=== PATIENT | male | born 1990 | race Caucasian/White ===

== ENCOUNTER 2021-12-24 10:49 | Emergency (ER) | payer SELFPAY | END 2021-12-24 11:36 | disposition home or self-care (01) | LOC: EMS 11:05 | DX: Z53.21 Procedure and treatment not carried out due to patient leaving prior to being seen by health care provider (principal) ==

== ENCOUNTER 2022-05-23 17:32 | Emergency (ER) | payer MEDICAID ==
[~2022-05-23] VITALS: Ht 170.2 cm; Wt 122.7 kg
[2022-05-23 17:48] VITALS: BP 122/83
[2022-05-23 17:56] LABS: COVID AG,FIA SOURCE NASAL SWAB
[2022-05-23 18:06] LABS: RAPID GROUP A STREP NEGATIVE (NEGATIVE)
[2022-05-23 18:17] LABS: INFLUENZA TYPE A NEGATIVE FOR TYPE A (NEGATIVE); INFLUENZA TYPE B NEGATIVE FOR TYPE B (NEGATIVE)
[2022-05-23] MEDS ORDERED: IBUP-1492 PO (19:05)
[2022-05-23] MEDS ORDERED: IBUPROFEN 600 MG TABLET PO ONE (19:15)
[2022-05-23] MEDS ORDERED: DEXAMETHASONE SOD PHOS 4 MG/ML 5 ML VIAL IM ONE (19:15)
== END 2022-05-23 19:27 | disposition home or self-care (01) ==
LOC: EMS 17:45
DX: J02.8 Acute pharyngitis due to other specified organisms (principal); F17.210 Nicotine dependence, cigarettes, uncomplicated; Z20.822 Contact with and (suspected) exposure to COVID-19
CPT/HCPCS: 99283; 87426; 87430; 87804; 96372; J1100